=== PATIENT | male | born 1950 | race Caucasian/White ===

== ENCOUNTER 2020-01-13 05:16 | Emergency (ER) | payer MEDICARE ==
[~2020-01-13] VITALS: Ht 177.8 cm; Wt 72.6 kg
--- NOTE | 2020-01-13 06:05 | NUR ---
Leg bag applied, patient demonstrated on how to remove urine from bag. All questions answered. Patient discharged to home in stable condition. Written and verbal after care instructions given. Patient verbalizes understanding of instructions. Stressed follow up or return to ER for worsening s/s.
--- NOTE | 2020-01-13 06:07 | NUR ---
Dr. Cat aware of repeat BP, ok to dc patient per MD.
[2020-01-13 06:16] VITALS: BP 178/84
== END 2020-01-13 06:16 | disposition home or self-care (01) ==
LOC: ER 05:27
DX: N40.1 Benign prostatic hyperplasia with lower urinary tract symptoms (principal); R33.8 Other retention of urine; R03.0 Elevated blood-pressure reading, without diagnosis of hypertension
CPT/HCPCS: 51702; A4663